=== PATIENT | male | born 1960 | race African-American/Black ===

== ENCOUNTER → 2019-01-05 21:37 | Emergency (ER) | payer OTHER ==
--- NOTE | 2019-01-05 22:48 | ED ---
Neurological HPI - HPI Summary HPI Summary: The patient is a 58 year old M brought in by EMS from [facility] to [facility] accompanied by two police officers with a chief complaint of a possible CVA since 2130. The ambulance was called by the nursing staff at the halfway due to the pts inability to speak. He states that he was exercising at the facility when he began experiencing extreme fatigue. Upon evaluation by the nurse who contacted the ambulance she found that he was having stroke like symptoms including L sided generalized weakness and numbness with the inability to speak. He reports that he had no issues speaking and was hungry due to missing dinner because of being rushed to arrive at [facility]. The pt denies any stroke symptoms but he is having issues with understanding directions and reports feeling fatigued but stressed that he was fatigued due missing his bed time. The pt is somewhat uncooperative and reports that he wants to leave the hospital and has been refusing to answer questions surronding his symptoms. - History of Current Complaint Chief Complaint: EDNeurologicalDeficit Stated Complaint: STROKE LIKE SYMPTOMS PER EMS Time Seen by Provider: 01/05/19 21:46 Hx Obtained From: Patient Hx From Patient Unobtainable Due To: Other - Pt is uncooperative Onset/Duration: Sudden Onset Timing: Intermittent Episodes Lasting: Neurological Deficit Location: Facial - L side, LUE - per nurse from the halfway , LLE - per nurse from the halfway Pain Intensity: 0 Pain Scale Used: 0-10 Numeric Aggravating: Nothing Alleviating: Nothing Associated Signs and Symptoms: Positive: Impaired Speech - Per nurse from the halfway, Numbness - Per nurse from the halfway: generalized L sided TPA Considered: No - Pt refused - Allergy/Home Medications Allergies/Adverse Reactions: Allergies Allergy/AdvReac Type Severity Reaction Status Date / Time No Known Allergies Allergy Verified 01/05/19 22:28 Home Medications: Home Medications Amlodipine Besylate [Norvasc] 10 mg PO 01/05/19 [History] Loratadine [Claritin 10 MG CAP] 10 mg PO DAILY 01/05/19 [History Confirmed 01/05] Sofosbuvir/Velpatasvir 400(NF) [Epclusa Tab (NF)] 1 tab PO DAILY 01/05/19 [ History Confirmed 01/05/19] PMH/Surg Hx/FS Hx/Imm Hx Previously Healthy: No - Pt left AMA before a history was obtainable Infectious Disease History: Yes Infectious Disease History: Denies: Traveled Outside the [place] in Last 30 Days - Social History Alcohol Use: None Hx Substance Use: No Substance Use Type: Reports: None Hx Tobacco Use: Yes Smoking Status (MU): Light Every Day Tobacco Smoker Review of Systems - ROS Summary Review of Systems Summary: Pt was uncooperative in answering the questions and a full ROS was unobtainable. Positive: Fatigue Positive: Numbness - generalized L sided weakness per nurse from the halfway , Slurred Speech All Other Systems Reviewed And Are Negative: No Physical Exam - Summary Physical Exam Summary: VITAL SIGNS: Reviewed. GENERAL: Patient is a well-developed and nourished male who is lying comfortable in the stretcher. Patient is not in any acute respiratory distress. HEAD AND FACE: No signs of trauma. No ecchymosis, hematomas or skull depressions. No sinus tenderness. EYES: PERRLA, EOMI x 2, No injected conjunctiva, no nystagmus. EARS: Hearing grossly intact. Ear canals and tympanic membranes are within normal limits. MOUTH: Oropharynx within normal limits. NECK: Supple, trachea is midline, no adenopathy, no JVD, no carotid bruit, no c- spine tenderness, neck with full ROM CHEST: Symmetric, no tenderness at palpation LUNGS: Clear to auscultation bilaterally. No wheezing or crackles. CVS: Regular rate and rhythm, S1 and S2 present, no murmurs or gallops appreciated. ABDOMEN: Soft, non-tender. No signs of distention. No rebound no guarding, and no masses palpated. Bowel sounds are normal. EXTREMITIES: FROM in all major joints, no edema, no cyanosis or clubbing. NEURO: Alert and oriented x 3. Sublet L facial droop, not clear if old or new. . Speech is normal and the pt is somewhat uncooperative during the exam SKIN: Dry and warm Triage Information Reviewed: Yes Vital Signs On Initial Exam: Initial Vitals Pulse Resp Pulse Ox 57 15 98 01/05/19 21:46 01/05/19 21:46 01/05/19 21:46 Vital Signs Reviewed: Yes Diagnostics - Vital Signs Vital Signs Temp Pulse Resp BP Pulse Ox 01/05/19 22:17 56 16 116/75 97 01/05/19 22:00 62 18 98 01/05/19 21:56 63 19 125/83 98 01/05/19 21:53 98.7 F 62 20 125/83 98 01/05/19 21:46 57 15 98 - Laboratory Lab Statement: Any lab studies that have been ordered have been reviewed, and results considered in the medical decision making process. Course/Dx - Course Course Of Treatment: The patient is a 58 year old M brought in by EMS from [facility] to [facility] accompanied by two police officers with a chief complaint of a possible CVA since 2130. The ambulance was called by the nursing staff at the halfway due to the pts inability to speak. He states that he was exercising at the facility when he began experiencing extreme fatigue. Upon his PE the pt is found to have Sublet L facial droop, not clear if old or new. The pt is uncooperative and refused a CT scan, bloodwork, and medical treatment. He is leaving AMA and the risks of leaving were explained to the pt by me including but not limited to stroke, permanent disabilities, and . He understands the risks and still wants to leave the facility. He will be diagnosed with a TIA and possible stroke and will be returned to [facility] under the care of their facility and under the supervision of the police officers. - Diagnoses Provider Diagnoses: TIA (transient ischemic attack), Stroke Discharge - Sign-Out/Discharge Documenting (check all that apply): Patient Departure - discharge AMA Patient Received Moderate/Deep Sedation with Procedure: No - Discharge Plan Disposition: AGAINST MEDICAL ADVICE Patient Education Materials: Transient Ischemic Attack (ED) Referrals: Zoraida RODRIGUEZ,Merlene Hairston [Primary Care Provider] - Additional Instructions: Please follow up with your primary care physician in 2-3 days. You have been informed of the risks of leaving against medical advise which include but are not limited to stroke, permanent disabilities, and . Return to the emergency department with any new or worsening symptoms. - Attestation Statements Document Initiated by Scribe: Yes Documenting Scribe: Jose Lanza Provider For Whom Scribe is Documenting (Include Credential): Mane Melara MD Scribe Attestation: Jose May, scribed for Mane Melara MD on 01/05/19 at 2252. Status of Scribe Document: Ready
[2019-01-05 23:03] VITALS: BP 106/69
== END | disposition left against medical advice (07) ==
LOC: ED 21:37
DX: G45.9 Transient cerebral ischemic attack, unspecified (principal); F17.210 Nicotine dependence, cigarettes, uncomplicated; R53.83 Other fatigue
CPT/HCPCS: 99283

== ENCOUNTER → 2019-01-06 13:21 | Emergency (ER) | payer OTHER ==
[~2019-01-06 13:21] MED LIST: Aspirin SUPP* 300 MG PR ONE; D5W 1/4 NS 1000 ML BAG* 1,000 ML IV SCH; Dextrose 50% Syringe 50 ML* 25 GM/50 ML SYRINGE IV PUSH ONE; Iodixanol* (CONTRAST) 320 MG/ML 100 ML SDV IV ONE
--- NOTE | 2019-01-06 13:41 | ED ---
Neurological HPI - HPI Summary HPI Summary: A 58 y/o M inmate with PMHx: DM presents to ED with L-sided weakness, last known normal approximately [id number] this date. Patient was seen at [facility] yesterday for same sx and discharged back to facility this AM after refusing treatments. En route, glucose: 50. At bedside, patient denies eating lunch and breakfast. Associated sx: confusion. Pt denies any fever, chills, erythema of eyes, sore throat, CP, SOB, cough, abdominal pain, N/V, dysuria, hematuria, myalgia, edema, rash, or dizziness. - History of Current Complaint Stated Complaint: STROKE LIKE SYMPTOMS Time Seen by Provider: 01/06/19 13:32 Hx Obtained From: Patient, Medical Records Onset/Duration: Still Present Timing: Constant Number of Seizures: 0 Neurological Deficit Location: Generalized - L-sided Character: Weak, Confusion Associated Signs and Symptoms: Positive: Weakness - L-sided, AMS. Negative: Dizziness, Nausea/Vomiting, Diaphoresis, Fever, Chest Pain, Shortness of Breath - Allergy/Home Medications Allergies/Adverse Reactions: Allergies Allergy/AdvReac Type Severity Reaction Status Date / Time No Known Allergies Allergy Verified 01/05/19 22:28 Home Medications: Home Medications LoraTADine TAB(NF) [Claritin 10 MG TAB(NF)] 10 mg PO DAILY 01/06/19 [History Confirmed 01/06/19] amLODIPine TAB* [Norvasc 5 mg TAB*] 10 mg PO DAILY 01/06/19 [History Confirmed 01/06/19] PMH/Surg Hx/FS Hx/Imm Hx Previously Healthy: No Endocrine/Hematology History: Reports: Hx Diabetes Sensory History: Denies: Hx Deafness EENT History: Denies: Hx Deafness - Social History Occupation: Unemployed Lives: Dormitory/Roommates - inmate Alcohol Use: None Hx Substance Use: No Substance Use Type: Reports: None Hx Tobacco Use: Yes Smoking Status (MU): Light Every Day Tobacco Smoker Review of Systems Negative: Fever, Chills Negative: Erythema Negative: Sore Throat Negative: Chest Pain Negative: Shortness Of Breath, Cough Negative: Abdominal Pain, Vomiting, Nausea Negative: dysuria, hematuria Negative: Myalgia, Edema Negative: Rash Neurological: Other - pos: AMS. neg: dizziness Positive: Weakness - L-sided All Other Systems Reviewed And Are Negative: Yes Physical Exam - Summary Physical Exam Summary: Constitutional: Well-developed, Well-nourished, Alert. (-) Distressed Skin: Warm, Dry HENT: Normocephalic; Atraumatic Eyes: Conjunctiva normal Neck: Musculoskeletal ROM normal neck. (-) JVD, (-) Stridor, (-) Tracheal deviation Cardio: Rhythm regular, rate normal, Heart sounds normal; Intact distal pulses; The pedal pulses are 2+ and symmetric. Radial pulses are 2+ and symmetric. (-) Murmur Pulmonary/Chest wall: Effort normal. (-) Respiratory distress, (-) Wheezes, (-) Rales Abd: Soft. 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 Cranial nerves II-XII are grossly intact. (-) Dysmetria , (-) Nystagmus, (-) Ataxia by finger to nose testing, (-) Sensory deficit. Psych: Mood and affect Normal Triage Information Reviewed: Yes Vital Signs Reviewed: Yes - [place] Coma Scale Best Eye Response: 4 - Spontaneous Best Motor Response: 6 - Obeys Commands Best Verbal Response: 5 - Oriented Coma Scale Total: 15 Diagnostics - Laboratory Result Diagrams: 01/06/19 14:13 01/06/19 14:13 Lab Statement: Any lab studies that have been ordered have been reviewed, and results considered in the medical decision making process. - Radiology CXR Radiology Interpretation Completed By: Radiologist Summary of Radiographic Findings: IMPRESSION: NO EVIDENCE FOR ACTIVE CARDIOPULMONARY DISEASE. ED provider has reviewed this report. - CT CTA CT Interpretation Completed By: Radiologist Summary of CT Findings: IMPRESSION: 1. THERE IS OCCLUSION OF THE RIGHT INTERNAL CAROTID ARTERY BEGINNING AT THE BIFURCATION EXTENDING TO THE ICA TERMINUS. THERE ARE FEATURES SUGGESTIVE OF ACUTE RIGHT INTERNAL. CAROTID ARTERY DISSECTION. 2. THERE IS IRREGULAR LOSS OF CONTRAST ENHANCEMENT OF THE A1 SEGMENT OF THE RIGHT ANTERIOR CEREBRAL ARTERY WHICH MAY INDICATE THROMBUS EXTENDING INTO THE A1 SEGMENT. THE. REMAINDER OF THE INTRACRANIAL CIRCULATION IS PATENT. THERE IS NO APPRECIABLE PERFUSION DEFECT. 3. ASPECTS SCORE OF 10. COLLATERAL SCORE OF 3. PRELIMINARY FINDINGS WERE DISCUSSED WITH DR. LAMB IN THE EMERGENCY DEPARTMENT AT APPROXIMATELY 2:38 PM ON JANUARY 06, 2019. Head CTA CT Interpretation Completed By: Radiologist Summary of CT Findings: IMPRESSION: 1. THERE IS OCCLUSION OF THE RIGHT INTERNAL CAROTID ARTERY BEGINNING AT THE BIFURCATION EXTENDING TO THE ICA TERMINUS. THERE ARE FEATURES SUGGESTIVE OF ACUTE RIGHT INTERNAL. CAROTID ARTERY DISSECTION. 2. THERE IS IRREGULAR LOSS OF CONTRAST ENHANCEMENT OF THE A1 SEGMENT OF THE RIGHT ANTERIOR CEREBRAL ARTERY WHICH MAY INDICATE THROMBUS EXTENDING INTO THE A1 SEGMENT. THE. REMAINDER OF THE INTRACRANIAL CIRCULATION IS PATENT. THERE IS NO APPRECIABLE PERFUSION DEFECT. 3. ASPECTS SCORE OF 10. COLLATERAL SCORE OF 3. PRELIMINARY FINDINGS WERE DISCUSSED WITH DR. LAMB IN THE EMERGENCY DEPARTMENT AT APPROXIMATELY 2:38 PM ON JANUARY 06, 2019. Brain CT CT Interpretation Completed By: Radiologist Summary of CT Findings: IMPRESSION: 1. THERE IS OCCLUSION OF THE RIGHT INTERNAL CAROTID ARTERY BEGINNING AT THE BIFURCATION. EXTENDING TO THE ICA TERMINUS. THERE ARE FEATURES SUGGESTIVE OF ACUTE RIGHT INTERNAL. CAROTID ARTERY DISSECTION. 2. THERE IS IRREGULAR LOSS OF CONTRAST ENHANCEMENT OF THE A1 SEGMENT OF THE RIGHT. ANTERIOR CEREBRAL ARTERY WHICH MAY INDICATE THROMBUS EXTENDING INTO THE A1 SEGMENT. THE. REMAINDER OF THE INTRACRANIAL CIRCULATION IS PATENT. THERE IS NO APPRECIABLE PERFUSION. DEFECT. 3. ASPECTS SCORE OF 10. COLLATERAL SCORE OF 3. PRELIMINARY FINDINGS WERE DISCUSSED WITH DR. LAMB IN THE EMERGENCY DEPARTMENT AT APPROXIMATELY 2:38 PM ON JANUARY 06, 2019. - EKG 1334 Cardiac Rate: Bradycardia - 58 bpm EKG Rhythm: Sinus Bradycardia Summary of EKG Findings: No STEMI. NIH Scale - NIH Scale Level of Consciousness: Alert/Keenly Responsive Ask Patient the Month and His/Her Age: Both Correct Ask Pt to Open/Close Eyes and Appliance Tester/Release Non-Paretic Hand: Both Correctly Best Gaze (Only Horizontal Eye Movement): Normal Visual Field Testing: No Visual Loss Facial Paresis-Pt to Smile & Close Eyes or Grimace Symmetry: Partial Paralysis Motor Function - Right Arm: No Drift-Holds 10 Seconds Motor Function - Left Arm: Drifts LT 10 seconds Motor Function - Right Leg: No Drift-Holds 10 Seconds Motor Function - Left Leg: Drifts LT 10 seconds Limb Ataxia-Must be out of Proportion to Weakness Present: Absent Sensory (Use Pinprick to Test Arms/Legs/Trunk/Face): Normal Best Language (Describe Picture, Name Items): Some Loss Dysarthria (Read Several Words): Normal Extinction and Inattention: No Abnormality Total Score: 5 Re-Evaluation - Re-Evaluation 1 Re-Evaluation Time: 14:53 Change: Worse Comment: ED provider at bedside. Patient not lifting his LLE. 2 Re-Evaluation Time: 14:57 Change: Worse Comment: Dr. Garland, neurology, at bedside. Discussing case. Patient is now aphasic and mute, continues to have L-sided facial droop, and unable to move LUE and LLE. 3 Re-Evaluation Time: 15:41 Change: Worse Comment: Patient's O2 sats dropping. Course/Dx - Course Course Of Treatment: Patient is a 58 y/o M inmate with PMHx: DM presenting with AMS, and L-sided weakness last known normal approximately [id number] this date. Patient seen at [facility] yesterday and left AMA back to [facility]. Glucose en route : 50. Labwork is without significant abnormality except POC glucose: 58. UA resuts shows glucose: 1+. Medical records reviewed from last night, patients sx onset 2129 last night. Head CTA and Brain CT shows "1. THERE IS OCCLUSION OF THE RIGHT INTERNAL CAROTID ARTERY BEGINNING AT THE BIFURCATION EXTENDING TO THE ICA TERMINUS. THERE ARE FEATURES SUGGESTIVE OF ACUTE RIGHT INTERNAL CAROTID ARTERY DISSECTION. 2. THERE IS IRREGULAR LOSS OF CONTRAST ENHANCEMENT OF THE A1 SEGMENT OF THE RIGHT ANTERIOR CEREBRAL ARTERY WHICH MAY INDICATE THROMBUS EXTENDING INTO THE A1 SEGMENT. THE REMAINDER OF THE INTRACRANIAL CIRCULATION IS PATENT. THERE IS NO APPRECIABLE PERFUSION DEFECT. 3. ASPECTS SCORE OF 10. COLLATERAL SCORE OF 3." CXR is negative. No code davis called as patient presented hypoglycemic and with similar presentation last night. Consulted with Dr. Garland, neuro, to discuss case, agrees with transfer. Consulted with Dr. Foster, ED [facility] at [facility], who will accept patient for transfer. The patient had a stuttering presentation here in the emergency room today, also, also last night had a stuttering presentation. Time of first onset was 9:30 PM last night. - Diagnoses Provider Diagnoses: Large vessel stroke, Carotid dissection, bilateral - Physician Notifications Discussed Care Of Patient With: Slick Garland - neuro Time Discussed With Above Provider: 15:02 Instructed by Provider To: Other - Discussing case, recommends transfer. - Critical Care Time Critical Care Time: 30-74 min - 60 mins Discharge - Sign-Out/Discharge Documenting (check all that apply): Patient Departure - TRANS - [facility] Patient Received Moderate/Deep Sedation with Procedure: No - Discharge Plan Condition: Critical Disposition: TRANS HIGHER LVL OF CARE FAC Referrals: Zoraida RODRIGUEZ,Merlene Hairston [Primary Care Provider] - - Billing Disposition and Condition Condition: CRITICAL Disposition: Trans Higher Lvl of Care Fac - Attestation Statements Document Initiated by Scribe: Yes Documenting Scribe: Rodríguez Cook Provider For Whom Umuibe is Documenting (Include Credential): Dr. Maurilio Lamb MD Scribe Attestation: I, Rodríguez Cook, scribed for Dr. Maurilio Lamb MD on 01/06/19 at 1558. Scribe Documentation Reviewed: Yes Provider Attestation: The documentation as recorded by the Rodríguez galindo accurately reflects the service I personally performed and the decisions made by me, Dr. Maurilio Lamb MD Status of Scribe Document: Viewed Consult Consult: 1960: Spoke with Dr. Foster, ED provider at [facility] Accepts patient for transfer.
[2019-01-06 14:07] LABS: Urine Appearance Clear; Urine Bilirubin Negative (Negative); Urine Blood Negative (Negative); Urine Color Yellow; Urine Glucose 1+(50 mg/dL) (Negative); Urine Ketones Negative (Negative); Urine Nitrite Negative (Negative); Urine Protein Negative (Negative); Urine Specific Gravity 1.012 (1.010-1.030); Urine Urobilinogen Negative (Negative)
[2019-01-06 14:20] LABS: ABS Eosinophils 0.1 10^3/ul (0-0.6); ABS Lymphocytes 2.2 10^3/ul (1.0-4.8); ABS Monocytes 0.6 10^3/ul (0-0.8); ABS Neutrophils 2.8 10^3/ul (1.5-7.7); Eosinophil % 1.1 %; Hematocrit 42 % (42-52); Hemoglobin 14.5 g/dL (14.0-18.0); Lymphocyte % 37.9 %; Mean Corpuscular HGB Conc 34 g/dL (31-36); Mean Corpuscular Hemoglobin 32 pg (27-31); Mean Corpuscular Volume 93 fL (80-94); Mean Platelet Volume 7.3 fL (7.4-10.4); Nucleated Red Blood Cells % 0.1; Platelet Count 300 10^3/uL (150-450); Red Blood Count 4.54 10^6 /uL (4.18-5.48); Red Cell Distribution Width 14 % (10-15); White Blood Count 5.7 10^3/uL (3.5-10.8)
[2019-01-06 14:27] LABS: Activated Partial Thrombo Time 33.5 seconds (26.0-38.0); INR 1.05 (0.82-1.09)
[2019-01-06 14:37] LABS: Albumin 4.1 g/dL (3.2-5.2); Albumin/Globulin Ratio 1.2 (1-3); BUN/Creatinine Ratio 10.1 (8-20); Calcium 9.6 mg/dL (8.6-10.3); EGFR African American 93.3 (>60); EGFR Non-African American 77.1 (>60); Globulin 3.3 g/dL (2-4); HDL Cholesterol 51.9 mg/dL; Total Bilirubin 0.6 mg/dL (0.2-1.0); Total Protein 7.4 g/dL (6.4-8.9)
[2019-01-06 16:24] VITALS: BP 136/90
--- NOTE | 2019-01-06 17:26 | CONS ---
NEUROLOGY CONSULTATION NOTE: DATE OF CONSULT: 01/06/19 - EMERGENCY DEPT CONSULTING PROVIDER: Dr. Maurilio Lamb REASON FOR CONSULT: Acute large vessel occlusion, stroke. CHIEF COMPLAINT: Left-sided weakness. HISTORY OF PRESENT ILLNESS: Mr. Roni Prince is a 58-year-old man who was brought in by EMS and was in 5-point maximal security restraints accompanied by 2 officers, who presented with the symptoms of left-sided weakness and slurred speech. Police note the patient presented initially on 01/05/19 with similar symptoms. His last known well was reported to be at 08:28 on 01/05/19. His symptoms onset was 08:30 p.m. on 01/05/19. I personally spoke with Coy, the nurse at the group home, who informed me that the patient initially had left- sided weakness. He was working out when he experienced the symptoms. The left- sided weakness seemed to have cleared up, but he was still slightly confused and was having trouble with finding words. He was taken to the hospital yesterday on 01/05/19 where the patient got better, but not completely resolved. Documented NIHSS yesterday, for comparison, was not found, but IV tPA was offered to the patient (yesterday), but the patient refused. The patient then stated that he needed to leave and go back to group home and signed out AMA. Again , the patient had persistent neurological deficits, mostly slurred speech and mild left-sided weakness. In the care home, he was able to walk around. This morning , he was able to go in and out of mass and go on and off stretcher. He was brought back to the hospital because he was found to have worsening of the dysarthria and left facial droop. The worsening of symptoms today started at 12 :15 p.m. Initially, he was found to have a blood glucose of 50, but with dextrose the glucose went up to 80's without any improvement of his symptoms; if anything, his symptoms got worse. Dr. Lamb had documented an NIH stroke scale of 5 today on his presentation, but when I was consulted at 03:02 p.m., I evaluated the patient at 03:05 p.m. and noticed that the patient has profound left-sided weakness, left facial droop, severe anarthria, eyes deviation towards the right side, and sensory abnormality on the left. Again, this is different than his initial presentation. His NIH stroke scale was 22. NIH stroke scale in detail showed the following: normal level of consciousness. Arouses to minor stimulation. He was able to answer the month and age. He was able to blink eyes and squeeze hands. He has partial gaze palsy that can be overcome from right to left. Visual price, he has complete hemianopia on the left. He has unilateral complete paralysis of the face on the left. Left arm motor drift, some effort against gravity was given a 2. Right arm motor drifts, again some effort against gravity +2. Left leg motor drift, some effort against gravity 2. Right leg motor drift +1. The right-sided symptoms seem to occur due to possibly the patient's minimal cooperation. Limb ataxia involved in 2 limbs +2. Sensation, mild to moderate at loss +1. Can sense being touched on the left. No aphasia. Dysarthria, he is mute/anarthric. Extinction , profound dianne-attention and neglect on the left side. He does not recognize his own hand. Total score of 22. A CT of the head was obtained and showed no evidence of acute intracranial abnormality. He has an ASPECT score of 10 and a collateral score of 3. A CTA head and neck showed evidence of occlusion of the right internal carotid artery beginning at the bifurcation extending to the right ICA terminus. 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 There is also regular loss of contrast enhancement of the A1 segment of the right anterior cerebral artery, which may indicate thrombus extending into the A1 segment. The remainder of the intracranial circulation is seen. There is no appreciable perfusion defect. He reports history of diabetes yesterday. Unable to obtain past medical history , surgical, family history due to the patient's anarthria. HOME MEDICATIONS: 1. Loratadine 10 mg p.o. daily. 2. Amlodipine 10 mg p.o. daily. ALLERGIES: No known drug allergy. SOCIAL HISTORY: He is unemployed. He does smoke tobacco every day. REVIEW OF SYSTEMS: Unable to obtain due to anarthria. PHYSICAL EXAMINATION: Temperature of 98.6, pulse of 56, respiratory rate of 15 , oxygen saturation of 99%, blood pressure of 132/91. General: Ill-appearing man who is anarthric. Head: Normocephalic, atraumatic. Eyes: Conjunctivae/ cornea are clear. Neck is supple and symmetrical with no carotid bruits. No lymphadenopathy. Lungs are clear to auscultation bilaterally. Cardiovascular: Regular rate and rhythm with normal S1, S2. Extremities: Normal range of motion with no cyanosis. Skin: No skin lesions or laceration. Psych: Affect is broad and normal mood. Easy to establish rapport. Neurological Examination : Mental Status: The patient is awake, but he has severe dysarthria/ anarthria. He is able to follow simple commands. Cranial Nerves: He has got homonymous hemianopia towards the left side. Eyes deviation towards the right. Pupils were equal, round, and reactive to light, no ptosis, reduced sensation on the left forehead, cheeks, and jaw region on the left. He has got a profound left facial droop. Tongue is symmetric and midline. Motor Examination : The patient is nearly plegic with 0-1/5 strength on the left. He is neglecting to the left side. He is able to move the right upper and right lower extremity to command, but does not entirely cooperate with exam, so he drops the arm after few seconds. Reflexes: Brachioradialis 1/2, biceps 1/2, triceps 1/2, patella 1/1, ankle 0/0, plantar flexors/extensor. Sensation is intact on the right. He has reduced sensation on the left arm and leg. Coordination: Dysmetria to [id number] bilaterally in the upper and lower extremity on the left side. Gait was not assessed due to the profound deficits. LABORATORY DATA: WBC of 5.7, hemoglobin of 14.5, hematocrit of 42, platelet count 300. INR is 1.05. Sodium 139, potassium 4.0, chloride 106, carbon dioxide 27, BUN of 10, creatinine of 0.99, glucose of 76, LDL of 94. Urinalysis , no pyuria. Urine drug screen was not obtained. The patient currently is anarthric and complains of left-sided neglect. ASSESSMENT AND RECOMMENDATIONS: Mr. Roni Prince is a 58-year-old - [place] man who presents from group home with symptoms of left hemiparesis, dysarthria, left hemineglect, and left facial droop. The patient deteriorated between 12:15-1500 today, but he did have symptoms since yesterday at 08:30 p.m. His symptoms never entirely improved. Therefore, the patient was deemed not a candidate for IV tPA as he is outside the therapeutic window. 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 I spoke to Dr. Puga from [facility] in [place] , who accepted the patient to the Neuro ICU and for evaluation for endovascular therapy for mechanical thrombectomy. Please give the patient a suppository aspirin 325 mg x1. Please check an Accu-Chek before he is transported out of [facility]. Keep his blood pressure in the higher range of normotension between 140-<180 mmHg. The patient will be transported via ground due to the weather. Continue neuro-check every 1 hour. The patient will most likely need a CT perfusion to evaluate for mismatch. He will need further care at a higher tertiary center with neuro ICU capabilities. TIME SPENT: Critical care time 60 minutes, of which more than 50% was spent obtaining history, examining the patient, education, counseling, and arranging the care to be transferred to [place]. I discussed the recommendation with Dr. Platt and Dr. Lamb. [id number]/CPS #: [id number] [facility]
== END | disposition short-term general hospital (02) ==
LOC: ED 13:21
DX: I63.9 Cerebral infarction, unspecified (principal); G81.94 Hemiplegia, unspecified affecting left nondominant side; R47.01 Aphasia; R29.810 Facial weakness; R41.82 Altered mental status, unspecified; I77.71 Dissection of carotid artery; R00.1 Bradycardia, unspecified; E11.9 Type 2 diabetes mellitus without complications; F17.200 Nicotine dependence, unspecified, uncomplicated
CPT/HCPCS: 36415; 51702; 70450; 70496; 70498; 71045; 80053; 80061; 81003; 83605; 84484; 85025; 85610; 85730; 93005; 96374; 99285; A9270-GY; Q9967